=== PATIENT | female | born 2000 | race Hispanic/Latino ===

== ENCOUNTER 2023-03-30 13:51 | Observation (INO) | payer MEDICAID, OTHER ==
[~2023-03-30] VITALS: Ht 157.5 cm; Wt 80.7 kg
[~2023-03-30 13:51] MED LIST: PREN-154 PO
[2023-03-30 13:59] VITALS: PULSE 108; RESP 16; O2SAT 97
[2023-03-30 14:34] LABS: APPEARANCE,URINE CLOUDY (CLEAR); BILIRUBIN,URINE NEGATIVE (NEGATIVE); COLOR,URINE YELLOW (YELLOW); GLUCOSE, URINE (UA) NEGATIVE (NEGATIVE); KETONES,URINE NEGATIVE (NEGATIVE); LEUKOCYTE ESTERASE ,URINE 250 Leu/uL (NEGATIVE); NITRATE,URINE NEGATIVE (NEGATIVE); OCCULT BLOOD,URINE NEGATIVE (NEGATIVE); PH,URINE 6.5 (5.0-8.0); PROTEIN,URINE 30 mg/dL (NEGATIVE); UROBILINOGEN,URINE 0.2 mg/dL (0.2-1.0)
[2023-03-30 14:38] LABS: ADD UA MICROSCOPIC YES
[2023-03-30 14:41] LABS: BACTERIA,URINE MOD /HPF (None Seen); MUCUS,URINE FEW LPF (None Seen); SQUAMOUS EPITHELIAL CELL,UR MANY /HPF (0-2)
[2023-03-30 15:01] VITALS: BP 117/64
== END 2023-03-30 15:55 | disposition home or self-care (01) ==
LOC: EDH 13:51 → LDH 13:52 → EDH 14:03
PROVIDERS: ADMIT Obstetrics & Gynecology; ATTEND Obstetrics & Gynecology
DX: O62.9 Abnormality of forces of labor, unspecified (principal); O36.8130 Decreased fetal movements, third trimester, not applicable or unspecified; Z3A.39 39 weeks gestation of pregnancy; Z79.899 Other long term (current) drug therapy
CPT/HCPCS: 59025; 87088; 81001; G0378

== ENCOUNTER 2023-04-04 11:02 | Inpatient (IN) | payer OTHER ==
[~2023-04-04] VITALS: Ht 162.6 cm; Wt 79.4 kg
[2023-04-04] MEDS ORDERED: LACTATED RINGERS 1000ML 1,000 ML IV PRN (12:00)
[2023-04-04] MEDS ORDERED: AMPICILLIN 2GM+NS 100ML 100 ML IV SCH (12:00)
[2023-04-04] MEDS ORDERED: OXYTOCIN-LR 20 UNITS/1000 ML 1,000 ML IV SCH (12:00)
[2023-04-04 12:02] VITALS: BP 104/56
[2023-04-04 12:24] LABS: APPEARANCE,URINE CLEAR (CLEAR); BILIRUBIN,URINE NEGATIVE (NEGATIVE); GLUCOSE, URINE (UA) NEGATIVE (NEGATIVE); KETONES,URINE NEGATIVE (NEGATIVE); LEUKOCYTE ESTERASE ,URINE 75 Leu/uL (NEGATIVE); NITRATE,URINE NEGATIVE (NEGATIVE); OCCULT BLOOD,URINE SMALL (NEGATIVE); PH,URINE 6.5 (5.0-8.0); PROTEIN,URINE NEGATIVE (NEGATIVE); UROBILINOGEN,URINE 0.2 mg/dL (0.2-1.0)
[2023-04-04 12:25] LABS: COLOR,URINE YELLOW (YELLOW)
[2023-04-04 12:31] LABS: BACTERIA,URINE RARE /HPF (None Seen); MUCUS,URINE RARE LPF (None Seen); RBC,URINE 0-1 /HPF (0-1); SQUAMOUS EPITHELIAL CELL,UR FEW /HPF (0-2)
[2023-04-04 12:49] LABS: HEMATOCRIT 34.8 % (36-48); MEAN CORPUSCULAR HEMOGLOBIN 28.5 pg (27.0-33.0); MEAN CORPUSCULAR HGB CONC 32.8 g/dL (32.0-36.0); RED CELL DISTRIBUTION WIDTH 13.8 % (11.0-15.5); WHITE BLOOD COUNT (AUTO) 6.5 K/uL (4.8-10.8)
[2023-04-04] MEDS: AMPICILLIN 1GM+NS 50ML 50 ML IV SCH ×3 (16:08→23:26)
[2023-04-04] MEDS ORDERED: OXYTOCIN-LR 30 UNITS/500ML 500 ML IV SCH (20:15)
[2023-04-04] MEDS ORDERED: OXYTOCIN-LR 30 UNITS/500ML 500 ML IV ONE (20:26)
[2023-04-04] MEDS ORDERED: MEPERIDINE-PF 25 MG/ML SYG ONE (20:56)
[2023-04-04] MEDS ORDERED: MEPERIDINE-PF 50 MG/ML SYG ONE (21:35)
[2023-04-04] MEDS ORDERED: PROMETHAZINE HCL 25 MG/ML 1ML AMPULE IM ONE (21:36)
[2023-04-04] MEDS ORDERED: MEPERIDINE-PF 50 MG/ML SYG IM PRN (22:00)
[2023-04-04] MEDS ORDERED: MEPERIDINE-PF 50 MG/ML SYG IVP PRN (22:00)
[2023-04-04] MEDS ORDERED: PROMETHAZINE HCL 25 MG/ML 1ML AMPULE IM PRN (22:00)
[2023-04-04] MEDS ORDERED: LIDOCAINE HCL 1% 20 ML VIAL ONE (23:19)
[2023-04-04] MEDS ORDERED: MISOPROSTOL 200 MCG TABLET ONE (23:25)
[2023-04-05] VITALS (7 sets, daily range): BP systolic 109–121; BP diastolic 57–74
[2023-04-05] MEDS ORDERED: ACETAMINOPHEN WITH CODEINE 1 TAB TAB PO PRN (01:00)
[2023-04-05] MEDS ORDERED: WITCH HAZEL 1 PAD TP PRN (01:00)
[2023-04-05] MEDS ORDERED: BENZOCAINE/LANOLIN/ALOE VERA 60 ML AEROSOL TP PRN (01:00)
[2023-04-05] MEDS ORDERED: DIPH,PERTUSS(ACELL),TET VAC/PF 0.5 ML VIAL IM PRN (01:00)
[2023-04-05] MEDS ORDERED: ACETAMINOPHEN 325 MG TAB PO PRN (01:00)
[2023-04-05] MEDS ORDERED: MEASLES/MUMPS/RUBELLA VACCINE, LIVE 0.5 ML/VIAL SQ PRN (01:00)
[2023-04-05] MEDS ORDERED: LANOLIN 30GM OINTMENT TP PRN (01:00)
[2023-04-05] MEDS: IBUPROFEN 600 MG TABLET PO PRN ×3 (01:09→15:33)
[2023-04-05] MEDS: OXYTOCIN-LR 30 UNITS/500ML 500 ML IV SCH ×2 (01:18→19:59)
[2023-04-05] MEDS ORDERED: LIDOCAINE HCL 1% 20 ML VIAL INJ SCH (09:00)
[2023-04-05] MEDS: DOCUSATE SODIUM 100 MG CAP PO SCH ×2 (09:29→20:23)
[2023-04-05] MEDS: AMPICILLIN 1GM+NS 50ML 50 ML IV SCH (20:00)
[2023-04-06 03:24] VITALS: BP 104/52
[2023-04-06 07:27] VITALS: BP 111/69
[2023-04-06 08:53] LABS: HEMATOCRIT 30.6 % (36-48); MEAN CORPUSCULAR HEMOGLOBIN 28.7 pg (27.0-33.0); MEAN CORPUSCULAR VOLUME 89.5 fL (79-99); RED BLOOD CELL COUNT(AUTO) 3.42 MIL/uL (4.00-5.50); RED CELL DISTRIBUTION WIDTH 14.5 % (11.0-15.5); WHITE BLOOD COUNT (AUTO) 7.5 K/uL (4.8-10.8)
[2023-04-06] MEDS: DOCUSATE SODIUM 100 MG CAP PO SCH (09:26)
[2023-04-06] MEDS ORDERED: IBUP-2070 PO (12:02)
[2023-04-06 12:06] VITALS: BP 123/72
== END 2023-04-06 14:10 | disposition home or self-care (01) | DRG 807 ==
LOC: EDH 11:02 → LDH 11:03 → OBSVTOIN 11:03 → WSH 04-05 04:33
PROVIDERS: ADMIT Obstetrics & Gynecology; ATTEND Obstetrics & Gynecology
PROC: 10E0XZZ Delivery of Products of Conception, External Approach (ICD-10-PCS; principal; 2023-04-05)
PROC: 10907ZC Drainage of Amniotic Fluid, Therapeutic from Products of Conception, Via Natural or Artificial Opening (ICD-10-PCS; 2023-04-05)
PROC: 0HQ9XZZ Repair Perineum Skin, External Approach (ICD-10-PCS; 2023-04-05)
PROC: 3E0234Z Introduction of Serum, Toxoid and Vaccine into Muscle, Percutaneous Approach (ICD-10-PCS; 2023-04-05)
DX: O69.81X0 Labor and delivery complicated by cord around neck, without compression, not applicable or unspecified (principal); Z37.0 Single live birth; O99.824 Streptococcus B carrier state complicating childbirth; Z3A.39 39 weeks gestation of pregnancy; O70.0 First degree perineal laceration during delivery; Z23 Encounter for immunization
CPT/HCPCS: 36415; 81001; 85027; 86592; 86850; 86900; 86901; 87088; 87340; 90715; G0378; J0290; J2175; J2550; J2590; J7120

== ENCOUNTER 2024-07-19 09:56 | Observation (INO) | payer SELFPAY ==
[~2024-07-19] VITALS: Ht 165.1 cm; Wt 69.9 kg
[~2024-07-19 09:56] MED LIST changes: +IBUP-2070 PO
[2024-07-19 10:01] VITALS: BP 109/69; PULSE 88; RESP 16; TEMP 98.6
[2024-07-19] MEDS ORDERED: LACTATED RINGERS 1000ML 1,000 ML IV SCH (10:30)
[2024-07-19 12:43] LABS: APPEARANCE,URINE CLEAR (CLEAR); BILIRUBIN,URINE NEGATIVE (NEGATIVE); COLOR,URINE LIGHT-YELLOW (YELLOW); GLUCOSE, URINE (UA) NEGATIVE (NEGATIVE); KETONES,URINE NEGATIVE (NEGATIVE); LEUKOCYTE ESTERASE ,URINE NEGATIVE Leu/uL (NEGATIVE); NITRATE,URINE NEGATIVE (NEGATIVE); OCCULT BLOOD,URINE NEGATIVE (NEGATIVE); PROTEIN,URINE NEGATIVE (NEGATIVE); UROBILINOGEN,URINE 0.2 mg/dL (0.2-1.0)
[2024-07-19 12:44] LABS: AMPHET/METH SCREEN,URINE NEGATIVE (NEGATIVE); BARBITURATE SCREEN, URINE NEGATIVE (NEGATIVE); BENZODIAZEPINES SCREEN,URINE NEGATIVE (NEGATIVE); CANNABINOID SCREEN,URINE NEGATIVE (NEGATIVE); COCAINE SCREEN,URINE NEGATIVE (NEGATIVE); OPIATE SCREEN,URINE NEGATIVE (NEGATIVE); PHENCYCLIDINE SCREEN,URINE NEGATIVE (NEGATIVE)
[2024-07-19 12:49] LABS: ADD UA MICROSCOPIC NO
== END 2024-07-19 11:11 | disposition home or self-care (01) ==
LOC: EDH 09:56 → LDH 09:57
PROVIDERS: ADMIT Internal Medicine; ATTEND Internal Medicine
DX: O21.8 Other vomiting complicating pregnancy (principal); O26.892 Other specified pregnancy related conditions, second trimester; R10.2 Pelvic and perineal pain; Z3A.20 20 weeks gestation of pregnancy; Z79.899 Other long term (current) drug therapy; Z98.890 Other specified postprocedural states
CPT/HCPCS: 76801; 80305; 81003; G0379; G0378; 59025